=== PATIENT | female | born 1950 ===

== ENCOUNTER 2018-07-27 14:23 | Outpatient (CLI) | payer OTHER ==
[~2018-07-27 14:23] MED LIST: CYMBALTA60 MG PO; OSTERA TABLET1 EACH PO
== END 2018-07-27 14:26 | disposition home or self-care (01) ==
LOC: RAD 14:23
DX: M25.551 Pain in right hip (principal); M25.552 Pain in left hip; M25.561 Pain in right knee; M25.562 Pain in left knee

== ENCOUNTER 2018-08-03 10:08 | Outpatient (CLI) | payer OTHER | END 2018-08-03 10:20 | disposition home or self-care (01) | LOC: MRI 10:08 | DX: M25.561 Pain in right knee (principal); M54.5 Low back pain | CPT/HCPCS: 72148; 73721 ==

== ENCOUNTER 2018-09-05 09:37 | Outpatient (CLI) | payer OTHER | END 2018-09-05 09:45 | disposition home or self-care (01) | LOC: SONOGRAMA 09:37 → MAMO-SONO 10:15 | DX: R10.13 Epigastric pain (principal) ==

== ENCOUNTER → 2018-09-23 15:01 | Outpatient (CLI) | payer OTHER | END | disposition home or self-care (01) | LOC: LAB 15:01 | DX: D68.8 Other specified coagulation defects (principal); E78.2 Mixed hyperlipidemia; N39.0 Urinary tract infection, site not specified ==

== ENCOUNTER → 2018-09-23 | Outpatient (CLI) | payer OTHER | END | disposition home or self-care (01) | LOC: RAD 14:12 | DX: Z01.818 Encounter for other preprocedural examination (principal); R07.89 Other chest pain ==

== ENCOUNTER → 2018-10-20 | Outpatient (CLI) | payer OTHER | END | disposition home or self-care (01) | LOC: RAD 14:51 | DX: M48.062 Spinal stenosis, lumbar region with neurogenic claudication (principal) ==